=== PATIENT | female | born 1950 | race Two or more races ===

== ENCOUNTER 2017-12-01 01:10 | Emergency (ER) | payer BC, OTHER ==
[~2017-12-01] VITALS: Ht 172.7 cm; Wt 88.9 kg
--- NOTE | 2017-12-01 01:10 | NUR ---
ER MD MCINTYRE AT BEDSIDE
--- NOTE | 2017-12-01 01:10 | NUR ---
BBRA 102; CHEST PAIN. A/OX4 SPANISH SPEAKING VSS NAD ABLE TO MAKE NEEDS KNOWN. WILL CONTINUE TO MONITOR FOR ANY CHANGES DURING THE SHIFT.
[2017-12-01] MEDS ORDERED: ASPIRIN 81 MG TAB.CHEW ONE (01:26)
[2017-12-01] MEDS ORDERED: NITROGLYCERIN 0.4 MG/TAB BOTTLE ONE (01:26)
[2017-12-01] MEDS ORDERED: NITROGLYCERIN PACKET 1 GM PACKET ONE (01:26)
[2017-12-01] MEDS ORDERED: NITROGLYCERIN PACKET 1 GM PACKET TD ONE (01:30)
[2017-12-01] MEDS ORDERED: ASPIRIN 81 MG TAB.CHEW PO ONE (01:30)
[2017-12-01] MEDS ORDERED: NITROGLYCERIN 0.4 MG/TAB BOTTLE SL ONE (01:30)
--- NOTE | 2017-12-01 01:33 | NUR ---
EKG AT BEDSIDE
[2017-12-01 01:50] LABS: BASOPHILS % (AUTO) 0.3 % (0.0-2.0); EOSINOPHILS % (AUTO) 1.5 % (0.0-6.0); HEMATOCRIT 39 % (33-45); HEMOGLOBIN 13.3 g/dL (11.5-14.8); LYMPHOCYTES # (AUTO) 4.8 /CMM (0.8-4.8); LYMPHOCYTES % (AUTO) 44.1 % (20.0-44.0); MEAN CORPUSCULAR HEMOGLOBIN 30 PG (26.0-33.0); MEAN CORPUSCULAR HGB CONC 34 g/dl (31.0-36.0); MEAN CORPUSCULAR VOLUME 87 fL (82-100); MONOCYTES # (AUTO) 0.7 /CMM (0.1-1.30); MONOCYTES % (AUTO) 6.6 % (2.0-12.0); NEUTROPHILS # (AUTO) 5.2 /CMM (1.8-8.9); NEUTROPHILS % (AUTO) 47.5 % (43.0-81.0); PLATELET COUNT (AUTO) 240 /CMM (150-450); RDW COEFFICIENT OF VARIATION 13.9 (11.5-15.0); RED BLOOD CELL COUNT(AUTO) 4.52 MIL/uL (4.0-5.2); WHITE BLOOD COUNT (AUTO) 10.9 K/uL (4.3-11.0)
--- NOTE | 2017-12-01 01:55 | NUR ---
REJECTED ITEMS CLERK AT BEDSIDE
[2017-12-01 02:00] LABS: CALCIUM, SERUM 9.1 mg/dL (8.5-10.1); CREATININE 0.9 mg/dL (0.6-1.3); POTASSIUM 3.8 mmol/L (3.5-5.1)
[2017-12-01 02:08] LABS: TROPONIN I 0.025 ng/mL (0.00-0.056)
[2017-12-01 02:14] LABS: ALBUMIN 3.9 g/dL (3.4-5.0); BILIRUBIN,DIRECT 0.1 mg/dL (0.0-0.2); BILIRUBIN,TOTAL 0.5 mg/dL (0.2-1.0); TOTAL PROTEIN, SERUM 7.8 g/dL (6.4-8.2)
[2017-12-01] MEDS ORDERED: ONDANSETRON HCL/PF - ER 4 MG/2 ML VIAL IV ONE (04:00)
[2017-12-01] MEDS ORDERED: ONDANSETRON HCL/PF 4 MG/2 ML VIAL ONE (04:08)
[2017-12-01 06:04] VITALS: BP 142/90
== END 2017-12-01 06:05 | disposition home or self-care (01) ==
LOC: ER 01:12
DX: R07.89 Other chest pain (principal); I11.9 Hypertensive heart disease without heart failure; I35.8 Other nonrheumatic aortic valve disorders; R94.31 Abnormal electrocardiogram [ECG] [EKG]
CPT/HCPCS: 36415; 71045-TC; 80048-TC; 80076-TC; 83880; 84484-TC; 85025-TC; 85378-TC; A4606; J2405; Z7610

== ENCOUNTER 2022-09-13 15:22 | Emergency (ER) | payer BC, MEDICAID ==
[~2022-09-13] VITALS: Ht 162.6 cm; Wt 75.7 kg
--- NOTE | 2022-09-13 15:29 | NUR ---
Patient AOx4 able to express her concerns. Patient with no signs of distress, discussed plan of care, pt verbalized agreement.
[2022-09-13] MEDS ORDERED: IV NS 0.9% 1,000 ML BAG IV ONE (15:30)
[2022-09-13] MEDS ORDERED: FAMOTIDINE/PF INJ 20 MG/2 ML VIAL IV ONE ×2 (15:30→16:56)
[2022-09-13] MEDS ORDERED: ONDANSETRON HCL/PF 4 MG/2 ML VIAL IVP ONE (15:30)
[2022-09-13] MEDS ORDERED: MORPHINE SULFATE INJ 2 MG/ML DISP.SYRIN IV ONE (15:30)
[2022-09-13 16:20] LABS: BASOPHILS % (AUTO) 0.7 % (0.0-2.0); EOSINOPHILS % (AUTO) 1.5 % (0.0-6.0); HEMATOCRIT 42 % (33-45); HEMOGLOBIN 13.8 g/dL (11.5-14.8); LYMPHOCYTES # (AUTO) 3.1 K/uL (0.8-4.8); LYMPHOCYTES % (AUTO) 48.1 % (20.0-44.0); MEAN CORPUSCULAR HGB CONC 33 g/dl (31.0-36.0); MEAN CORPUSCULAR VOLUME 87 fL (82-100); MONOCYTES # (AUTO) 0.7 K/uL (0.1-1.30); MONOCYTES % (AUTO) 10.1 % (2.0-12.0); NEUTROPHILS # (AUTO) 2.6 K/uL (1.8-8.9); NEUTROPHILS % (AUTO) 39.6 % (43.0-81.0); PLATELET COUNT (AUTO) 140 K/uL (150-450); RED BLOOD CELL COUNT(AUTO) 4.83 MIL/uL (4.0-5.2); WHITE BLOOD COUNT (AUTO) 6.5 K/uL (4.3-11.0)
--- NOTE | 2022-09-13 16:25 | NUR ---
Patients daughter at bedside, per pts request.
[2022-09-13 16:27] LABS: CALCIUM, SERUM 9.2 mg/dL (8.5-10.1); CARBON DIOXIDE 26 mmol/L (21-32); CHLORIDE 101 mmol/L (98-107); GLUCOSE 116 mg/dL (74-106); POTASSIUM 3.9 mmol/L (3.5-5.1); SODIUM SERUM 137 mmol/L (136-145); UREA NITROGEN, BLOOD 31 mg/dL (7-18)
[2022-09-13 16:33] LABS: ALANINE AMINOTRANSFERASE 37 U/L (12-78); ALBUMIN 3.7 g/dL (3.4-5.0); ALKALINE PHOSPHATASE 59 U/L (46-116); ASPARTATE AMINOTRANSFERASE 32 U/L (15-37); BILIRUBIN,DIRECT 0.1 mg/dL (0.0-0.2); BILIRUBIN,TOTAL 0.4 mg/dL (0.2-1.0); LIPASE 163 U/L (73-393); TOTAL PROTEIN, SERUM 7.1 g/dL (6.4-8.2)
[2022-09-13] MEDS ORDERED: ONDANSETRON HCL/PF 4 MG/2 ML VIAL ONE (16:56)
[2022-09-13] MEDS ORDERED: MORPHINE SULFATE INJ 2 MG/ML DISP.SYRIN ONE (16:56)
[2022-09-13] MEDS ORDERED: ONDA4TAB5 PO (17:30)
[2022-09-13] MEDS ORDERED: AMOX-430 PO (17:30)
[2022-09-13] MEDS ORDERED: MAGN296S72 PO (17:30)
--- NOTE | 2022-09-13 17:37 | NUR ---
Discussed discharge plan with patient, verbalized agreement.
[2022-09-13 18:12] VITALS: BP 118/66
== END 2022-09-13 18:00 | disposition home or self-care (01) ==
LOC: ER 15:32
DX: K52.9 Noninfective gastroenteritis and colitis, unspecified (principal); Z79.899 Other long term (current) drug therapy; Z88.1 Allergy status to other antibiotic agents
CPT/HCPCS: 99285; 74176; 96374; 76705; 96361; 96375; 85025; 80048; 83690; 80076; 36415; J3490; J2405; J7030; J2270